=== PATIENT | male | born 1960 | race Two or more races ===

== ENCOUNTER 2017-04-24 22:28 | Emergency (ER) | payer MEDICAID ==
--- NOTE | 2017-04-24 23:07 | ED Physician Chart ---
ED Chief Complaint/HPI - Patient Information Date Seen:: 04/24/17 Time Seen:: 22:40 Chief Complaint:: nausea History of Present Illness:: THIS IS A 56 YO DIABETIC AND HYPERTENSIVE MALE WHO IS A FREQUENT FLYER HOMELESS PATIENT WITH A COMPLAINT OF NAUSEA. HE DENIES FEVER, COUGH, SORE THROAT, CHEST PAIN AND ABDOMINAL PAIN. HE DENIES HAVING VOMITING AND DIARRHEA. Allergies:: Allergies Allergy/AdvReac Type Severity Reaction Status Date / Time No Known Allergies Allergy Verified 04/24/17 22:54 Vitals:: Vital Signs - 8 hr 04/24/17 22:30 Temp 98.0 F HR 95 RR 18 BP 165/90 O2 Sat % 98 Historian:: Patient Review:: Nurse's Note Reviewed, Old Chart Reviewed ED Review of Systems - Review of Systems General/Constitutional: No fever, No chills, No weight loss, No weakness, No diaphoresis, No edema, No loss of appetite Skin: No skin lesions, No rash, No bruising Head: No headache, No light-headedness Eyes: No loss of vision, No pain, No diplopia ENT: No earache, No nasal drainage, No sore throat, No tinnitus Neck: No neck pain, No swelling, No thyromegaly, No stiffness, No mass noted Cardio Vascular: No chest pain, No palpitations, No PND, No orthopnea, No edema Pulmonary: No SOB, No cough, No sputum, No wheezing GI: Nausea, No vomiting, No diarrhea, No pain, No melena, No hematochezia, No constipation, No hematemesis G/U: No dysuria, No frequency, No hematuria Musculoskeletal: No bone or joint pain, No back pain, No muscle pain Endocrine: No polyuria, No polydipsia Psychiatric: No prior psych history, No depression, No anxiety, No suicidal ideation Hematopoietic: No bruising, No lymphadenopathy Allergic/Immuno: No urticaria, No angioedema Neurological: No syncope, No focal symptoms, No weakness, No paresthesia, No headache, No seizure, No dizziness, No confusion, No vertigo ED Past Medical History - Past Medical History Obtainable: Yes Past Medical History: HTN, DM, Other (ETOH ABUSE) Social History: Non Smoker, Alcohol, No Drug Use Surgical History: None Psychiatricy History: Depression Medication: Reviewed Family Medical History - Family Member Mother History Unknown: Yes Living Status: ED Physical Exam - Physical Examination General/Constitutional: Awake, Well-developed, well-nourished, Alert, No distress, GCS 15, Non-toxic appearing, Ambulatory Other Gen/Cons comments:: HE IS SMELLY AND UNKEPT AND SOMEWHAT DISORIENTED TIMES THREE. Head: Atraumatic Eyes: Lids, conjuctiva normal, PERRL, EOMI Skin: Nl inspection, No rash, No skin lesions, No ecchymosis, Well hydrated, No lymphadenopathy ENMT: External ears, nose nl, Nasal exam nl, Lips, teeth, gums nl Neck: Nontender, Full ROM w/o pain, No JVD, No nuchal rigidity, No bruit, No mass, No stridor Respiratory: Nl effort/Exclusion, Clear to Auscultation, No Wheeze/Rhonchi/Rales Cardio Vascular: RRR, No murmur, gallop, rubs, NL S1 S2 GI: No tenderness/rebounding/guarding, No organomegaly, No hernia, Normal BS's, Nondistended, No mass/bruits, No McBurney tenderness : No CVA tenderness Extremities: No tenderness or effusion, Full ROM, normal strength in all extremities, No edema, Normal digits & nails Neuro/Psych: Alert/oriented, DTR's symmetric, Normal sensory exam, Normal motor strength, Judgement/insight normal, Mood normal, Normal gait, No focal deficits Misc: Normal back, No paraspinal tenderness ED Septic Shock - . Is Septic Shock (SBP<90, OR Lactate>4 mmol\L) present?: No - <6hrs of presentation: Vital Signs: Vital Signs - 8 hr 04/24/17 22:30 Temp 98.0 F HR 95 RR 18 BP 165/90 O2 Sat % 98
[2017-04-24 23:37] LABS: % BASOPHILS 0.1 % (0.0-2.0); % EOSINOPHILS 1.1 % (0.0-5.0); % LYMPHOCYTES 16.4 % (20.0-50.0); % MONOCYTES 4.9 % (2.0-10.0); % NEUTROPHILS 77.5 % (40.0-80.0); EOSINOPHILE ABSOLUTE 0.1 Th/cmm (0.1-0.4); HEMATOCRIT 47.2 % (41.0-60); HEMOGLOBIN 15.9 gm/dL (12-16); LYMPHOCYTE ABSOLUTE 1.7 Th/cmm (1.5-3.0); MEAN CELL VOLUME 90.4 fl (80-99); MEAN CORPUSCULAR HEMOGLOBIN 30.5 pg (26.0-30.0); MEAN CORPUSCULAR HGB CONC 33.7 pg (28.0-36.0); MEAN PLATELET VOLUME 9.2 fl; MONOCYTE ABSOLUTE 0.5 Th/cmm (0.3-1.0); NEUTROPHILE ABSOLUTE 7.8 Th/cmm (1.8-8.0); PLATELET COUNT 236 Th/cmm (150-400); RED BLOOD COUNT 5.22 Mil/cmm (4.30-5.70); RED CELL DISTRIBUTION WIDTH 12.2 % (11.5-20.0); WHITE BLOOD COUNT 10.1 Th/cmm (4.8-10.8)
[2017-04-24 23:49] LABS: INR 0.91 (0.5-1.4); PROTHROMBIN TIME (TEST) 9.5 SECONDS (9.5-11.5)
[2017-04-24 23:57] LABS: ALB/GLOB RATIO 1.3 (1.0-1.8); ALBUMIN 3.7 gm/dL (4.2-5.5); ALKALINE PHOSPHATASE 141 U/L (34-104); BILIRUBIN,TOTAL 0.3 mg/dL (0.3-1.0); BUN - UREA NITROGEN 14 mg/dL (7-25); CALCIUM SERUM 9.2 mg/dL (8.6-10.3); CARBON DIOXIDE 24.2 mEq/L (21.0-31.0); CHLORIDE 101 mEq/L (98-107); CREATININE - SERUM 0.7 mg/dL (0.7-1.3); GFR AFRICAN-AMERICAN > 60.0 ml/min (>90); GFR NON AFRICAN-AMERICAN > 60.0 ml/min; GLUCOSE 368 mg/dL (70-105); POTASSIUM SERUM 3.2 mEq/L (3.5-5.1); SGOT 9 U/L (13-39); SGPT/ALT 11 U/L (7-52); SODIUM SERUM 133 mEq/L (136-145); TOTAL PROTEIN,SERUM 6.6 gm/dL (6.0-8.3)
[2017-04-25] MEDS ORDERED: Potassium Chloride Elixir 20 mEq /15 mL UDC PO ONE (01:42)
[2017-04-25] MEDS ORDERED: Potassium Chloride Elixir 20 mEq /15 mL UDC ONE (06:39)
[2017-04-25 20:24] LABS: A1C % 10.1 % (4.0-6.0)
== END 2017-04-25 06:50 | disposition home or self-care (01) ==
LOC: ER 22:28
DX: E11.65 Type 2 diabetes mellitus with hyperglycemia (principal); R11.0 Nausea; I10 Essential (primary) hypertension
CPT/HCPCS: 36415-UA; 80053-TC; 80320-TC; 83036-90; 84443-TC; 84484-TC; 85025-TC; 85610-TC; Z7502

== ENCOUNTER 2017-07-17 18:21 | Emergency (ER) | payer MEDICAID ==
--- NOTE | 2017-07-17 18:37 | ED Physician Chart ---
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 HE DENIES FEVER, COUGH, SORE THROAT, CHEST PAIN AND NOW HE CLAIMS THAT HE HAS ABDOMINAL PAIN. HE DENIES HAVING VOMITING AND DIARRHEA. HE ADMITS TO DRINKING ALCOHOL. Allergies:: Allergies Allergy/AdvReac Type Severity Reaction Status Date / Time No Known Allergies Allergy Verified 07/17/17 18:26 Vitals:: Vital Signs - 8 hr 07/17/17 18:28 Temp 98.6 F HR 96 RR 17 BP 162/97 O2 Sat % 98 Historian:: Patient, EMS Review:: Nurse's Note Reviewed, Old Chart Reviewed ED Review of Systems - Review of Systems General/Constitutional: No fever, No chills, No weight loss, No weakness, No diaphoresis, No edema, No loss of appetite Skin: No skin lesions, No rash, No bruising Head: No headache, No light-headedness Eyes: No loss of vision, No pain, No diplopia ENT: No earache, No nasal drainage, No sore throat, No tinnitus Neck: No neck pain, No swelling, No thyromegaly, No stiffness, No mass noted Cardio Vascular: No chest pain, No palpitations, No PND, No orthopnea, No edema Pulmonary: No SOB, No cough, No sputum, No wheezing GI: No nausea, No vomiting, No diarrhea, Pain, No melena, No hematochezia, No constipation, No hematemesis G/U: No dysuria, No frequency, No hematuria Musculoskeletal: No bone or joint pain, No back pain, No muscle pain Endocrine: No polyuria, No polydipsia Psychiatric: No prior psych history, No depression, No anxiety, No suicidal ideation Hematopoietic: No bruising, No lymphadenopathy Allergic/Immuno: No urticaria, No angioedema Neurological: No syncope, No focal symptoms, No weakness, No paresthesia, No headache, No seizure, No dizziness, No confusion, No vertigo ED Past Medical History - Past Medical History Obtainable: Yes Past Medical History: HTN, DM, PUD/GERD Family History: None Social History: Smoker, Alcohol, No Drug Use, Homeless Surgical History: None Psychiatricy History: Depression Medication: Reviewed Family Medical History - Family Member Mother History Unknown: Yes Living Status: ED Physical Exam - Physical Examination General/Constitutional: Awake, Well-developed, well-nourished, Alert, No distress, GCS 15, Non-toxic appearing, Ambulatory Other Gen/Cons comments:: SMELLS AND IS UNKEPT Head: Atraumatic Eyes: Lids, conjuctiva normal, PERRL, EOMI Skin: Nl inspection, No rash, No skin lesions, No ecchymosis, Well hydrated, No lymphadenopathy ENMT: External ears, nose nl, Nasal exam nl, Lips, teeth, gums nl Neck: Nontender, Full ROM w/o pain, No JVD, No nuchal rigidity, No bruit, No mass, No stridor Respiratory: Nl effort/Exclusion, Clear to Auscultation, No Wheeze/Rhonchi/Rales Cardio Vascular: RRR, No murmur, gallop, rubs, NL S1 S2 GI: No tenderness/rebounding/guarding, No organomegaly, No hernia, Normal BS's, Nondistended, No mass/bruits, No McBurney tenderness : No CVA tenderness Extremities: No tenderness or effusion, Full ROM, normal strength in all extremities, No edema, Normal digits & nails Neuro/Psych: Alert/oriented, DTR's symmetric, Normal sensory exam, Normal motor strength, Judgement/insight normal, Mood normal, Normal gait, No focal deficits Misc: Normal back, No paraspinal tenderness ED Labs/Radiology/EKG Results - Lab Results Results: Abnormal Lab Results 07/17/17 07/17/17 07/17/17 18:50 18:50 18:50 WBC 7.2 RBC 5.01 Hgb 15.2 Hct 44.7 MCV 89.1 MCH 30.3 H MCHC Differential 34.0 RDW 12.1 Plt Count 226 MPV 8.9 Neutrophils % 67.7 Lymphocytes % 24.0 Monocytes % 6.0 Eosinophils % 2.3 Basophils % 0.0 PT 9.4 L INR 0.90 PTT (Actin FS) 27.5 Sodium 135 L Potassium 3.4 L Chloride 103 Carbon Dioxide 25.5 Anion Gap 9.9 BUN 10 Creatinine 0.6 L Est GFR ( Amer) > 60.0 Est GFR (Non-Af Amer) > 60.0 BUN/Creatinine Ratio 16.7 Glucose 196 H Calcium 8.6 Total Bilirubin 0.3 AST 14 ALT 15 Alkaline Phosphatase 114 H Troponin I Total Protein 6.2 Albumin 3.6 L Globulin 2.6 Albumin/Globulin Ratio 1.4 Ethyl Alcohol 07/17/17 07/17/17 18:50 18:50 WBC RBC Hgb Hct MCV MCH MCHC Differential RDW Plt Count MPV Neutrophils % Lymphocytes % Monocytes % Eosinophils % Basophils % PT INR PTT (Actin FS) Sodium Potassium Chloride Carbon Dioxide Anion Gap BUN Creatinine Est GFR ( Amer) Est GFR (Non-Af Amer) BUN/Creatinine Ratio Glucose Calcium Total Bilirubin AST ALT Alkaline Phosphatase Troponin I 0.02 Total Protein Albumin Globulin Albumin/Globulin Ratio Ethyl Alcohol < 10 - Radiology Results Results: CHEST X-RAY = CARDIOMEGALY - EKG Interpretations EKG Time:: 18:39 Rate & Rhythm: RATE = 104 Henry: LEFT Comments:: NO ECTOPY SEEN ED Septic Shock - . Is Septic Shock (SBP<90, OR Lactate>4 mmol\L) present?: No - <6hrs of presentation: Vital Signs: Vital Signs - 8 hr 07/17/17 18:28 Temp 98.6 F HR 96 RR 17 BP 162/97 O2 Sat % 98 ED Reassessment (Disposition) - Reassessment Reassessment:: ABDOMINAL PAIN Reassessment Condition:: Unchanged - Diagnosis Diagnosis:: ABDOMINAL PAIN - Aftercare/Follow up Instructions Aftercare/Follow-Up Instructions:: Counseled pt regarding lab results/diagnosis & need follow up, Refer to Discharge Instructions, Counseled pt & family regarding lab results/diagnosis & need follow up - Patient Disposition Discharge/Transfer:: Home Condition at Disposition:: Improved ED Discharge Plan - Patient Disposition Admit/Discharge/Transfer: PT DISCHARGED HOME Condition at Disposition: Improved Instructions: Abdominal Pain, [id number] Additional Instructions: FOLLOW UP WITH YOUR PRIMARY MEDICAL DOCTOR GERARDO
[2017-07-17 19:00] LABS: % EOSINOPHILS 2.3 % (0.0-5.0); % NEUTROPHILS 67.7 % (40.0-80.0); EOSINOPHILE ABSOLUTE 0.2 Th/cmm (0.1-0.4); HEMATOCRIT 44.7 % (41.0-60); HEMOGLOBIN 15.2 gm/dL (12-16); LYMPHOCYTE ABSOLUTE 1.7 Th/cmm (1.5-3.0); MEAN CELL VOLUME 89.1 fl (80-99); MEAN CORPUSCULAR HEMOGLOBIN 30.3 pg (26.0-30.0); MEAN PLATELET VOLUME 8.9 fl; MONOCYTE ABSOLUTE 0.4 Th/cmm (0.3-1.0); NEUTROPHILE ABSOLUTE 4.9 Th/cmm (1.8-8.0); PLATELET COUNT 226 Th/cmm (150-400); RED BLOOD COUNT 5.01 Mil/cmm (4.30-5.70); RED CELL DISTRIBUTION WIDTH 12.1 % (11.5-20.0); WHITE BLOOD COUNT 7.2 Th/cmm (4.8-10.8)
[2017-07-17 19:14] LABS: INR 0.9 (0.5-1.4); PROTHROMBIN TIME (TEST) 9.4 SECONDS (9.5-11.5)
[2017-07-17 19:18] LABS: ALB/GLOB RATIO 1.4 (1.0-1.8); ALBUMIN 3.6 gm/dL (4.2-5.5); ALKALINE PHOSPHATASE 114 U/L (34-104); ANION GAP 9.9 (7.0-16.0); BILIRUBIN,TOTAL 0.3 mg/dL (0.3-1.0); BUN - UREA NITROGEN 10 mg/dL (7-25); CALCIUM SERUM 8.6 mg/dL (8.6-10.3); CARBON DIOXIDE 25.5 mEq/L (21.0-31.0); CHLORIDE 103 mEq/L (98-107); CREATININE - SERUM 0.6 mg/dL (0.7-1.3); GFR AFRICAN-AMERICAN > 60.0 ml/min (>90); GFR NON AFRICAN-AMERICAN > 60.0 ml/min; GLUCOSE 196 mg/dL (70-105); POTASSIUM SERUM 3.4 mEq/L (3.5-5.1); SGOT 14 U/L (13-39); SGPT/ALT 15 U/L (7-52); SODIUM SERUM 135 mEq/L (136-145); TOTAL PROTEIN,SERUM 6.2 gm/dL (6.0-8.3)
[2017-07-17 21:01] LABS: URINE MICROSCOPIC INDICATED? YES; URINE SOURCE CLEAN C
[2017-07-17 21:05] LABS: URINE BILIRUBIN NEGATIVE (NEGATIVE); URINE BLOOD SMALL (NEGATIVE); URINE GLUCOSE (UA) 250 mg/dL (NEGATIVE); URINE KETONE NEGATIVE (NEGATIVE); URINE LEUKOCYTE ESTERASE NEGATIVE (NEGATIVE); URINE NITRATE NEGATIVE (NEGATIVE); URINE PROTEIN 30 mg/dL (NEGATIVE)
[2017-07-17 21:13] LABS: URINE CLARITY CLEAR (CLEAR); URINE COLOR YELLOW
[2017-07-17 21:18] LABS: URINE EPITHELIAL CELLS FEW /lpf (FEW)
[2017-07-17 21:19] LABS: URINE BACTERIA FEW /hpf (NONE SEEN)
--- NOTE | 2017-07-18 10:31 | Diagnostic Imaging Report ---
Chest x-ray portable HISTORY: Cough. Findings: Portable upright examination of the chest at 1912 hours reviewed compared to prior study 01/26/2015 demonstrates cardiomegaly. There is evidence for left lower lobe pneumonia and effusion. Follow-up initially recommended. Bony thorax intact. Mediastinal structures midline. IMPRESSION: Cardiomegaly Questionable left basilar infiltrate and effusion follow-up examination is recommended.
[2017-07-18 16:46] LABS: A1C % 8.9 % (4.0-6.0)
== END 2017-07-17 20:30 | disposition home or self-care (01) ==
LOC: ER 18:21
DX: R10.9 Unspecified abdominal pain (principal); I10 Essential (primary) hypertension; E11.9 Type 2 diabetes mellitus without complications; K21.9 Gastro-esophageal reflux disease without esophagitis; F17.200 Nicotine dependence, unspecified, uncomplicated; Z59.0 Homelessness
CPT/HCPCS: 36415-UA; 71045-TC; 80053-TC; 80320-TC; 81001-TC; 83036-90; 84484-TC; 85025-TC; 85610-TC; 85730-TC; 93005

== ENCOUNTER 2017-07-18 03:40 | Emergency (ER) | payer MEDICAID ==
--- NOTE | 2017-07-18 04:43 | ED Physician Chart ---
ED Chief Complaint/HPI - Patient Information Date Seen:: 07/18/17 Time Seen:: 03:55 Chief Complaint:: weakness History of Present Illness:: THIS IS A 56 YO HOMELESS MALE WHO WAS HERE EARLIER AND TREATED. HE WANTS TO BE SEEN AGAIN FOR A CHECK OF HIS BP. HE DENIES CHEST PAIN, NAUSEA AND VOMITING. Allergies:: Allergies Allergy/AdvReac Type Severity Reaction Status Date / Time No Known Allergies Allergy Verified 07/17/17 18:26 Vitals:: Vital Signs - 8 hr 07/18/17 03:49 Temp 98.1 F HR 106 RR 19 BP 140/96 O2 Sat % 96 Historian:: Patient Review:: Nurse's Note Reviewed ED Review of Systems - Review of Systems General/Constitutional: No fever, No chills, No weight loss, Weakness, No diaphoresis, No edema, No loss of appetite Skin: No skin lesions, No rash, No bruising Head: No headache, No light-headedness Eyes: No loss of vision, No pain, No diplopia ENT: No earache, No nasal drainage, No sore throat, No tinnitus Neck: No neck pain, No swelling, No thyromegaly, No stiffness, No mass noted Cardio Vascular: No chest pain, No palpitations, No PND, No orthopnea, No edema Pulmonary: No SOB, No cough, No sputum, No wheezing GI: No nausea, No vomiting, No diarrhea, No pain, No melena, No hematochezia, No constipation, No hematemesis G/U: No dysuria, No frequency, No hematuria Musculoskeletal: No bone or joint pain, No back pain, No muscle pain Endocrine: No polyuria, No polydipsia Psychiatric: No prior psych history, No depression, No anxiety, No suicidal ideation Hematopoietic: No bruising, No lymphadenopathy Allergic/Immuno: No urticaria, No angioedema Neurological: No syncope, No focal symptoms, No weakness, No paresthesia, No headache, No seizure, No dizziness, No confusion, No vertigo ED Past Medical History - Past Medical History Obtainable: Yes Past Medical History: HTN Family History: None Social History: Smoker, Alcohol, No Drug Use, Homeless Surgical History: None Psychiatricy History: None Medication: Reviewed Family Medical History - Family Member Mother History Unknown: Yes Living Status: ED Physical Exam - Physical Examination General/Constitutional: Awake, Well-developed, well-nourished, Alert, No distress, GCS 15, Non-toxic appearing, Ambulatory Head: Atraumatic Eyes: Lids, conjuctiva normal, PERRL, EOMI Skin: Nl inspection, No rash, No skin lesions, No ecchymosis, Well hydrated, No lymphadenopathy ENMT: External ears, nose nl, Nasal exam nl, Lips, teeth, gums nl Neck: Nontender, Full ROM w/o pain, No JVD, No nuchal rigidity, No bruit, No mass, No stridor Respiratory: Nl effort/Exclusion, Clear to Auscultation, No Wheeze/Rhonchi/Rales Cardio Vascular: RRR, No murmur, gallop, rubs, NL S1 S2 GI: No tenderness/rebounding/guarding, No organomegaly, No hernia, Normal BS's, Nondistended, No mass/bruits, No McBurney tenderness : No CVA tenderness Extremities: No tenderness or effusion, Full ROM, normal strength in all extremities, No edema, Normal digits & nails Neuro/Psych: Alert/oriented, DTR's symmetric, Normal sensory exam, Normal motor strength, Judgement/insight normal, Mood normal, Normal gait, No focal deficits Misc: Normal back, No paraspinal tenderness ED Labs/Radiology/EKG Results - Lab Results Results: Abnormal Lab Results 07/18/17 07/18/17 04:45 04:45 Sodium 135 L Potassium 3.3 L Chloride 102 Carbon Dioxide 24.9 Anion Gap 11.4 BUN 9 Creatinine 0.7 Est GFR ( Amer) > 60.0 Est GFR (Non-Af Amer) > 60.0 BUN/Creatinine Ratio 12.9 Glucose 231 H Calcium 8.8 Total Bilirubin 0.3 AST 12 L ALT 15 Alkaline Phosphatase 112 H Troponin I 0.01 Total Protein 6.5 Albumin 3.8 L Globulin 2.7 Albumin/Globulin Ratio 1.4 ED Assessment - Assessment General Assessment: HYPERTENSION ED Septic Shock - . Is Septic Shock (SBP<90, OR Lactate>4 mmol\L) present?: No - <6hrs of presentation: Vital Signs: Vital Signs - 8 hr 07/18/17 03:49 Temp 98.1 F HR 106 RR 19 BP 140/96 O2 Sat % 96 ED Reassessment (Disposition) - Reassessment Reassessment Condition:: Improved - Diagnosis Diagnosis:: HYPERTENSION - Aftercare/Follow up Instructions Aftercare/Follow-Up Instructions:: Counseled pt regarding lab results/diagnosis & need follow up, Refer to Discharge Instructions, Counseled pt & family regarding lab results/diagnosis & need follow up - Patient Disposition Discharge/Transfer:: Home Condition at Disposition:: Improved ED Discharge Plan - Patient Disposition Admit/Discharge/Transfer: PT DISCHARGED HOME Condition at Disposition: Improved Instructions: Hypertension Additional Instructions: follow up with your primary medical doctor ryanne
[2017-07-18 05:16] LABS: ALB/GLOB RATIO 1.4 (1.0-1.8); ALBUMIN 3.8 gm/dL (4.2-5.5); ALKALINE PHOSPHATASE 112 U/L (34-104); ANION GAP 11.4 (7.0-16.0); BILIRUBIN,TOTAL 0.3 mg/dL (0.3-1.0); BUN - UREA NITROGEN 9 mg/dL (7-25); CALCIUM SERUM 8.8 mg/dL (8.6-10.3); CARBON DIOXIDE 24.9 mEq/L (21.0-31.0); CHLORIDE 102 mEq/L (98-107); CREATININE - SERUM 0.7 mg/dL (0.7-1.3); GFR AFRICAN-AMERICAN > 60.0 ml/min (>90); GFR NON AFRICAN-AMERICAN > 60.0 ml/min; GLUCOSE 231 mg/dL (70-105); POTASSIUM SERUM 3.3 mEq/L (3.5-5.1); SGOT 12 U/L (13-39); SGPT/ALT 15 U/L (7-52); SODIUM SERUM 135 mEq/L (136-145); TOTAL PROTEIN,SERUM 6.5 gm/dL (6.0-8.3)
== END 2017-07-18 06:24 | disposition home or self-care (01) ==
LOC: ER 03:40
DX: I10 Essential (primary) hypertension (principal); F17.200 Nicotine dependence, unspecified, uncomplicated; Z59.0 Homelessness
CPT/HCPCS: 36415-UA; 80053-TC; 84484-TC; Z7502

== ENCOUNTER 2017-07-27 03:14 | Emergency (ER) | payer MEDICAID ==
[2017-07-27] MEDS ORDERED: Pantoprazole 40 mg EC Tab PO STA (03:50)
--- NOTE | 2017-07-27 03:56 | ED Physician Chart ---
ED Chief Complaint/HPI - Patient Information Date Seen:: 07/27/17 Time Seen:: 03:55 Chief Complaint:: Generalized weakness and abdominal pain History of Present Illness:: 56 yo homeless male called [place] [employer] complaining generalized weakness and nausea and abdominal pain a few hours ago. Patient was brought to ER for evaluation. Allergies:: Allergies Allergy/AdvReac Type Severity Reaction Status Date / Time No Known Allergies Allergy Verified 07/17/17 18:26 Vitals:: Vital Signs - 8 hr 07/27/17 03:21 Temp 98 F HR 103 RR 18 BP 153/94 O2 Sat % 95 ED Review of Systems - Review of Systems General/Constitutional: No fever, No chills, Weakness Skin: No bruising Head: No headache Eyes: No pain ENT: No nasal drainage Neck: No neck pain Cardio Vascular: No chest pain Pulmonary: No SOB GI: Nausea, No vomiting, Pain Musculoskeletal: No bone or joint pain Neurological: No focal symptoms ED Past Medical History - Past Medical History Past Medical History: HTN, DM Social History: Non Smoker, Alcohol, No Drug Use Surgical History: other (Elbow surgery) Family Medical History - Family Member Mother History Unknown: Yes Living Status: ED Physical Exam - Physical Examination General/Constitutional: Awake Head: Atraumatic Eyes: PERRL Skin: No ecchymosis ENMT: Nasal exam nl Neck: No nuchal rigidity Respiratory: No Wheeze/Rhonchi/Rales Cardio Vascular: RRR, No murmur, gallop, rubs, NL S1 S2 GI: Nondistended Extremities: normal strength in all extremities Neuro/Psych: No focal deficits ED Labs/Radiology/EKG Results - Lab Results Results: Laboratory Tests 07/27/17 03:20 POC Glucose 205 H Laboratory Last Values WBC 9.0 Th/cmm (4.8-10.8) 07/27/17 04:00 RBC 5.50 Mil/cmm (4.30-5.70) 07/27/17 04:00 Hgb 16.6 gm/dL (12-16) 07/27/17 04:00 Hct 49.5 % (41.0-60) 07/27/17 04:00 MCV 90.0 fl (80-99) 07/27/17 04:00 MCH 30.2 pg (26.0-30.0) H 07/27/17 04:00 MCHC Differential 33.5 pg (28.0-36.0) 07/27/17 04:00 RDW 12.3 % (11.5-20.0) 07/27/17 04:00 Plt Count 202 Th/cmm (150-400) 07/27/17 04:00 MPV 8.6 fl 07/27/17 04:00 Neutrophils % 69.7 % (40.0-80.0) 07/27/17 04:00 Lymphocytes % 21.4 % (20.0-50.0) 07/27/17 04:00 Monocytes % 5.3 % (2.0-10.0) 07/27/17 04:00 Eosinophils % 1.7 % (0.0-5.0) 07/27/17 04:00 Basophils % 1.9 % (0.0-2.0) 07/27/17 04:00 PT 9.8 SECONDS (9.5-11.5) 07/27/17 04:00 INR 0.94 (0.5-1.4) 07/27/17 04:00 PTT (Actin FS) 27.0 SECONDS (26.0-38.0) 07/27/17 04:00 Sodium 135 mEq/L (136-145) L 07/27/17 04:00 Potassium 3.6 mEq/L (3.5-5.1) 07/27/17 04:00 Chloride 101 mEq/L (98-107) 07/27/17 04:00 Carbon Dioxide 28.3 mEq/L (21.0-31.0) 07/27/17 04:00 Anion Gap 9.3 (7.0-16.0) 07/27/17 04:00 BUN 12 mg/dL (7-25) 07/27/17 04:00 Creatinine 0.6 mg/dL (0.7-1.3) L 07/27/17 04:00 Est GFR ( Amer) > 60.0 ml/min (>90) 07/27/17 04:00 Est GFR (Non-Af Amer) > 60.0 ml/min 07/27/17 04:00 BUN/Creatinine Ratio 20.0 07/27/17 04:00 Glucose 220 mg/dL (70-105) H 07/27/17 04:00 POC Glucose 205 MG/DL (70 - 105) H 07/27/17 03:20 Calcium 9.0 mg/dL (8.6-10.3) 07/27/17 04:00 Total Bilirubin 0.3 mg/dL (0.3-1.0) 07/27/17 04:00 AST 10 U/L (13-39) L 07/27/17 04:00 ALT 11 U/L (7-52) 07/27/17 04:00 Alkaline Phosphatase 127 U/L (34-104) H 07/27/17 04:00 Total Protein 6.6 gm/dL (6.0-8.3) 07/27/17 04:00 Albumin 3.7 gm/dL (4.2-5.5) L 07/27/17 04:00 Globulin 2.9 gm/dL 07/27/17 04:00 Albumin/Globulin Ratio 1.3 (1.0-1.8) 07/27/17 04:00 Amylase 25 U/L (29-103) L 07/27/17 04:00 Lipase 13 U/L (11-82) 07/27/17 04:00 Ethyl Alcohol < 10 mg/dL (0-10) 07/27/17 04:00 - EKG Interpretations EKG Time:: 04:03 Rate & Rhythm: 104, sinus tachycardia Tyler: left atrial enlargement Intervals: polonged QT interval ED Assessment - Assessment General Assessment: Gastroenteritis DM II Hypertension Assessment/Comments:: CBC, CMP, lipase, ETOH level Pantoprazole 40mg po Zofran 40mg po ED Septic Shock - . Is Septic Shock (SBP<90, OR Lactate>4 mmol\L) present?: No - <6hrs of presentation: Vital Signs: Vital Signs - 8 hr 07/27/17 03:21 Temp 98 F HR 103 RR 18 BP 153/94 O2 Sat % 95 ED Reassessment (Disposition) - Reassessment Reassessment Condition:: Improved - Patient Disposition Discharge/Transfer:: Home ED Discharge Plan - Patient Disposition Admit/Discharge/Transfer: PT DISCHARGED HOME Condition at Disposition: Stable Instructions: Nausea, Adult Additional Instructions: FOLLOW UP WITH YOUR REGULAR DOCTOR IN 1-2 DAYS OR AT [facility]. RETURN TO ER FOR ANY WORSENING SYMPTOMS. Accepting Physician: NO,PCP PER PATIENT [Other] not on staff,PCP is [Primary Care Provider] -
[2017-07-27] MEDS ORDERED: Pantoprazole 40 mg EC Tab PO ONE (04:08)
[2017-07-27 04:16] LABS: % BASOPHILS 1.9 % (0.0-2.0); % EOSINOPHILS 1.7 % (0.0-5.0); % LYMPHOCYTES 21.4 % (20.0-50.0); % MONOCYTES 5.3 % (2.0-10.0); % NEUTROPHILS 69.7 % (40.0-80.0); BASOPHILE ABSOLUTE 0.2 Th/cumm (0-0.2); EOSINOPHILE ABSOLUTE 0.2 Th/cmm (0.1-0.4); HEMATOCRIT 49.5 % (41.0-60); HEMOGLOBIN 16.6 gm/dL (12-16); LYMPHOCYTE ABSOLUTE 1.9 Th/cmm (1.5-3.0); MEAN CORPUSCULAR HEMOGLOBIN 30.2 pg (26.0-30.0); MEAN CORPUSCULAR HGB CONC 33.5 pg (28.0-36.0); MEAN PLATELET VOLUME 8.6 fl; MONOCYTE ABSOLUTE 0.5 Th/cmm (0.3-1.0); NEUTROPHILE ABSOLUTE 6.2 Th/cmm (1.8-8.0); PLATELET COUNT 202 Th/cmm (150-400); RED CELL DISTRIBUTION WIDTH 12.3 % (11.5-20.0)
[2017-07-27 04:26] LABS: INR 0.94 (0.5-1.4); PROTHROMBIN TIME (TEST) 9.8 SECONDS (9.5-11.5)
[2017-07-27 04:29] LABS: ALB/GLOB RATIO 1.3 (1.0-1.8); ALBUMIN 3.7 gm/dL (4.2-5.5); ALKALINE PHOSPHATASE 127 U/L (34-104); AMYLASE SERUM 25 U/L (29-103); ANION GAP 9.3 (7.0-16.0); BILIRUBIN,TOTAL 0.3 mg/dL (0.3-1.0); BUN - UREA NITROGEN 12 mg/dL (7-25); CARBON DIOXIDE 28.3 mEq/L (21.0-31.0); CHLORIDE 101 mEq/L (98-107); CREATININE - SERUM 0.6 mg/dL (0.7-1.3); GFR AFRICAN-AMERICAN > 60.0 ml/min (>90); GFR NON AFRICAN-AMERICAN > 60.0 ml/min; GLUCOSE 220 mg/dL (70-105); LIPASE 13 U/L (11-82); POTASSIUM SERUM 3.6 mEq/L (3.5-5.1); SGOT 10 U/L (13-39); SGPT/ALT 11 U/L (7-52); SODIUM SERUM 135 mEq/L (136-145); TOTAL PROTEIN,SERUM 6.6 gm/dL (6.0-8.3)
== END 2017-07-27 06:25 | disposition home or self-care (01) ==
LOC: ER 03:14
DX: R53.1 Weakness (principal); R10.9 Unspecified abdominal pain; R11.0 Nausea; I10 Essential (primary) hypertension; E11.9 Type 2 diabetes mellitus without complications; Z59.0 Homelessness
CPT/HCPCS: 99285; 93005; 36415; 36416; 82948; 85025; 85610; 80320; 82150; 83690; 80053; Q0162; Z7610

== ENCOUNTER 2017-09-15 05:39 | Emergency (ER) | payer MEDICAID ==
--- NOTE | 2017-09-15 06:21 | ED Physician Chart ---
ED Chief Complaint/HPI - Patient Information Date Seen:: 09/15/17 Time Seen:: 06:20 Chief Complaint:: Generalized weakness History of Present Illness:: 57 yo homeless male walked to ER stating that he had weakness all over the body and pain in bilateral lower extremities due to "walking a lot". He fell into asleep during conversation and had to be waken up repeatedly. Allergies:: Allergies Allergy/AdvReac Type Severity Reaction Status Date / Time No Known Allergies Allergy Verified 09/15/17 06:02 Vitals:: Vital Signs - 8 hr 09/15/17 06:05 Temp 98.7 F HR 99 RR 18 BP 144/87 O2 Sat % 97 ED Review of Systems - Review of Systems General/Constitutional: No fever, Weakness Skin: Bruising Head: Light headed Eyes: No pain ENT: No nasal drainage Neck: No neck pain Cardio Vascular: No chest pain Pulmonary: No SOB GI: No nausea, No vomiting Musculoskeletal: Bone or joint pain Neurological: No focal symptoms ED Past Medical History - Past Medical History Past Medical History: HTN, DM Social History: Smoker, No Alcohol, No Drug Use Surgical History: other (Left arm surgery, neck surgery) Family Medical History - Family Member Mother History Unknown: Yes Living Status: ED Physical Exam - Physical Examination General/Constitutional: Awake Head: Atraumatic Eyes: PERRL Skin: No skin lesions ENMT: Nasal exam nl Neck: No nuchal rigidity Respiratory: No Wheeze/Rhonchi/Rales Cardio Vascular: RRR, No murmur, gallop, rubs, NL S1 S2 GI: No tenderness/rebounding/guarding Extremities: No tenderness or effusion Neuro/Psych: Mood normal ED Assessment - Assessment General Assessment: Generalized weakness possibly due to lack of sleep DM II Hypertension Assessment/Comments:: CBC, CMP, HbA1c level, ETOH level Dr. Stanley assumed care at 07:00 ED Septic Shock - . Is Septic Shock (SBP<90, OR Lactate>4 mmol\\L) present?: No - <6hrs of presentation: Vital Signs: Vital Signs - 8 hr 09/15/17 06:05 Temp 98.7 F HR 99 RR 18 BP 144/87 O2 Sat % 97
[2017-09-15 06:28] LABS: EOSINOPHILE ABSOLUTE 0.2 Th/cmm (0.1-0.4)
[2017-09-15 06:31] LABS: % EOSINOPHILS 2.2 % (0.0-5.0); % LYMPHOCYTES 19.8 % (20.0-50.0); % MONOCYTES 6.3 % (2.0-10.0); % NEUTROPHILS 71.7 % (40.0-80.0); HEMATOCRIT 43.8 % (41.0-60); HEMOGLOBIN 15.1 gm/dL (12-16); LYMPHOCYTE ABSOLUTE 1.9 Th/cmm (1.5-3.0); MEAN CELL VOLUME 90.3 fl (80-99); MEAN CORPUSCULAR HGB CONC 34.4 pg (28.0-36.0); MEAN PLATELET VOLUME 8.8 fl; MONOCYTE ABSOLUTE 0.6 Th/cmm (0.3-1.0); NEUTROPHILE ABSOLUTE 6.9 Th/cmm (1.8-8.0); PLATELET COUNT 249 Th/cmm (150-400); RED BLOOD COUNT 4.85 Mil/cmm (4.30-5.70); RED CELL DISTRIBUTION WIDTH 12.3 % (11.5-20.0); WHITE BLOOD COUNT 9.6 Th/cmm (4.8-10.8)
[2017-09-15 07:21] LABS: ALB/GLOB RATIO 1.2 (1.0-1.8); ALBUMIN 3.6 gm/dL (4.2-5.5); ALKALINE PHOSPHATASE 128 U/L (34-104); ANION GAP 9.4 (7.0-16.0); BILIRUBIN,TOTAL 0.3 mg/dL (0.3-1.0); BUN - UREA NITROGEN 11 mg/dL (7-25); CALCIUM SERUM 8.7 mg/dL (8.6-10.3); CARBON DIOXIDE 27.8 mEq/L (21.0-31.0); CHLORIDE 101 mEq/L (98-107); CREATININE - SERUM 0.7 mg/dL (0.7-1.3); GFR AFRICAN-AMERICAN > 60.0 ml/min (>90); GFR NON AFRICAN-AMERICAN > 60.0 ml/min; GLUCOSE 252 mg/dL (70-105); POTASSIUM SERUM 3.2 mEq/L (3.5-5.1); SGOT 10 U/L (13-39); SGPT/ALT 11 U/L (7-52); SODIUM SERUM 135 mEq/L (136-145); TOTAL PROTEIN,SERUM 6.6 gm/dL (6.0-8.3)
[2017-09-15] MEDS ORDERED: Potassium Chloride 20 mEq ER Tab PO ONE (07:48)
[2017-09-15] MEDS: Potassium Chloride 20 mEq ER Tab PO ONE (07:51)
[2017-09-16 20:42] LABS: A1C % 9.3 % (4.0-6.0)
== END 2017-09-15 08:00 | disposition home or self-care (01) ==
LOC: ER 05:39
DX: R53.1 Weakness (principal); I10 Essential (primary) hypertension; E11.9 Type 2 diabetes mellitus without complications; R42 Dizziness and giddiness; F17.200 Nicotine dependence, unspecified, uncomplicated; Z59.0 Homelessness
CPT/HCPCS: 36415-UA; 80053-TC; 80320-TC; 83036-90; 85025-TC; Z7502

== ENCOUNTER 2018-05-10 04:22 | Emergency (ER) | payer MEDICAID ==
--- NOTE | 2018-05-10 05:21 | ED Physician Chart ---
ED Chief Complaint/HPI - Patient Information Date Seen:: 05/10/18 Time Seen:: 05:16 Chief Complaint:: generalized weakness headache History of Present Illness:: 57 yr old male homeless with htn dm here for generlized weakness Allergies:: Allergies Allergy/AdvReac Type Severity Reaction Status Date / Time No Known Allergies Allergy Verified 05/10/18 04:34 Vitals:: Vital Signs - 8 hr 05/10/18 04:30 Temp 98.2 F HR 99 RR 16 BP 150/88 O2 Sat % 99 ED Review of Systems - Review of Systems General/Constitutional: No fever Head: Headache Eyes: No loss of vision ENT: No earache Neck: No neck pain Cardio Vascular: No chest pain Pulmonary: No SOB GI: No vomiting G/U: No dysuria Musculoskeletal: Bone or joint pain Endocrine: No polyuria Psychiatric: Depression Hematopoietic: No bruising Allergic/Immuno: No urticaria Neurological: Weakness ED Past Medical History - Past Medical History Obtainable: No Family Medical History - Family Member Mother History Unknown: Yes Living Status: ED Physical Exam - Physical Examination General/Constitutional: Well-developed, well-nourished Head: Atraumatic Eyes: Lids, conjuctiva normal Skin: Nl inspection ENMT: External ears, nose nl Neck: Full ROM w/o pain Respiratory: Nl effort/Exclusion Cardio Vascular: RRR GI: No tenderness/rebounding/guarding Extremities: Full ROM Neuro/Psych: Alert/oriented ED Assessment - Assessment General Assessment: generalized weakness ED Septic Shock - . Is Septic Shock (SBP<90, OR Lactate>4 mmol\L) present?: No - <6hrs of presentation: Vital Signs: Vital Signs - 8 hr 05/10/18 04:30 Temp 98.2 F HR 99 RR 16 BP 150/88 O2 Sat % 99 ED Reassessment (Disposition) - Reassessment Reassessment:: generalized weakness - Diagnosis Diagnosis:: generalized weakness - Patient Disposition Discharge/Transfer:: Home Condition at Disposition:: Stable
[2018-05-10 05:46] LABS: % BASOPHILS 0.6 % (0.0-2.0); % EOSINOPHILS 1.8 % (0.0-5.0); % LYMPHOCYTES 21.4 % (20.0-50.0); % MONOCYTES 6.6 % (2.0-10.0); % NEUTROPHILS 69.6 % (40.0-80.0); BASOPHILE ABSOLUTE 0.1 Th/cumm (0-0.2); EOSINOPHILE ABSOLUTE 0.2 Th/cmm (0.1-0.4); HEMATOCRIT 49.1 % (41.0-60); HEMOGLOBIN 15.9 gm/dL (12-16); LYMPHOCYTE ABSOLUTE 1.9 Th/cmm (1.5-3.0); MEAN CELL VOLUME 88.4 fl (80-99); MEAN CORPUSCULAR HEMOGLOBIN 28.7 pg (26.0-30.0); MEAN CORPUSCULAR HGB CONC 32.4 pg (28.0-36.0); MEAN PLATELET VOLUME 8.9 fl; MONOCYTE ABSOLUTE 0.6 Th/cmm (0.3-1.0); NEUTROPHILE ABSOLUTE 5.9 Th/cmm (1.8-8.0); PLATELET COUNT 222 Th/cmm (150-400); RED BLOOD COUNT 5.55 Mil/cmm (4.30-5.70); RED CELL DISTRIBUTION WIDTH 12.8 % (11.5-20.0); WHITE BLOOD COUNT 8.7 Th/cmm (4.8-10.8)
[2018-05-10 06:05] LABS: ANION GAP 11.7 (7.0-16.0); BUN - UREA NITROGEN 13 mg/dL (7-25); CALCIUM SERUM 9.1 mg/dL (8.6-10.3); CHLORIDE 99 mEq/L (98-107); CREATININE - SERUM 0.9 mg/dL (0.7-1.3); GFR AFRICAN-AMERICAN > 60.0 ml/min (>90); GFR NON AFRICAN-AMERICAN > 60.0 ml/min; GLUCOSE 265 mg/dL (70-105); POTASSIUM SERUM 3.7 mEq/L (3.5-5.1); SODIUM SERUM 134 mEq/L (136-145)
== END 2018-05-10 06:35 | disposition home or self-care (01) ==
LOC: ER 04:22
DX: R53.1 Weakness (principal); Z59.0 Homelessness
CPT/HCPCS: 36415-UA; 80048-TC; 83036-90; 85025-TC; Z7502

== ENCOUNTER 2018-08-09 03:14 | Emergency (ER) | payer MEDICAID ==
--- NOTE | 2018-08-09 06:13 | ED Physician Chart ---
ED Chief Complaint/HPI - Patient Information Date Seen:: 08/09/18 Time Seen:: 03:30 Chief Complaint:: feet pain History of Present Illness:: this is a 57 yo frequent [employer]er [employer] because of bilateral foot pain. he has a long history of alcohol abuse and is homeless. he is unkept, stinks but cooperative. Allergies:: Allergies Allergy/AdvReac Type Severity Reaction Status Date / Time No Known Allergies Allergy Verified 05/10/18 04:34 Vitals:: Vital Signs - 8 hr 08/09/18 03:23 Temp 97.8 F HR 102 RR 17 BP 153/97 O2 Sat % 92 Historian:: EMS, Medical Records Review:: Nurse's Note Reviewed, Old Chart Reviewed ED Review of Systems - Review of Systems General/Constitutional: No fever, No chills, No weight loss, No weakness, No diaphoresis, No edema, No loss of appetite, Other (pt unable to give a review of systems.) Skin: No skin lesions, No rash, No bruising Head: No headache, No light-headedness Eyes: No loss of vision, No pain, No diplopia ENT: No earache, No nasal drainage, No sore throat, No tinnitus Neck: No neck pain, No swelling, No thyromegaly, No stiffness, No mass noted Cardio Vascular: No chest pain, No palpitations, No PND, No orthopnea, No edema Pulmonary: No SOB, No cough, No sputum, No wheezing GI: No nausea, No vomiting, No diarrhea, No pain, No melena, No hematochezia, No constipation, No hematemesis G/U: No dysuria, No frequency, No hematuria Musculoskeletal: No bone or joint pain, No back pain, No muscle pain Endocrine: No polyuria, No polydipsia Psychiatric: No prior psych history, No depression, No anxiety, No suicidal ideation Hematopoietic: No bruising, No lymphadenopathy Allergic/Immuno: No urticaria, No angioedema Neurological: No syncope, No focal symptoms, No weakness, No paresthesia, No headache, No seizure, No dizziness, No confusion, No vertigo ED Past Medical History - Past Medical History Obtainable: Yes Past Medical History: HTN, DM Family History: None Social History: Non Smoker, Alcohol, No Drug Use, Homeless Surgical History: other (unknown) Psychiatricy History: None Medication: Reviewed Family Medical History - Family Member Mother History Unknown: Yes Living Status: ED Physical Exam - Physical Examination General/Constitutional: Awake, Well-developed, well-nourished, Alert, No distress, GCS 15, Non-toxic appearing, Ambulatory Other Gen/Cons comments:: lethargic and unkept Head: Atraumatic Eyes: Lids, conjuctiva normal, PERRL, EOMI Skin: Nl inspection, No rash, No skin lesions, No ecchymosis, Well hydrated, No lymphadenopathy ENMT: External ears, nose nl, Nasal exam nl, Lips, teeth, gums nl Neck: Nontender, Full ROM w/o pain, No JVD, No nuchal rigidity, No bruit, No mass, No stridor Respiratory: Nl effort/Exclusion, Clear to Auscultation, No Wheeze/Rhonchi/Rales Cardio Vascular: RRR, No murmur, gallop, rubs, NL S1 S2 GI: No tenderness/rebounding/guarding, No organomegaly, No hernia, Normal BS's, Nondistended, No mass/bruits, No McBurney tenderness Other GI comments:: large abdomen : No CVA tenderness Extremities: No tenderness or effusion, Full ROM, normal strength in all extremities, No edema, Normal digits & nails Neuro/Psych: Alert/oriented, DTR's symmetric, Normal sensory exam, Normal motor strength, Judgement/insight normal, Mood normal, Normal gait, No focal deficits Misc: Normal back, No paraspinal tenderness ED Assessment - Assessment General Assessment: bilateral foot pain alcoholism ED Septic Shock - . Is Septic Shock (SBP<90, OR Lactate>4 mmol\L) present?: No - <6hrs of presentation: Vital Signs: Vital Signs - 8 hr 08/09/18 03:23 Temp 97.8 F HR 102 RR 17 BP 153/97 O2 Sat % 92 ED Reassessment (Disposition) - Reassessment Reassessment Condition:: Improved - Diagnosis Diagnosis:: bilateral foot pain alcoholism - Aftercare/Follow up Instructions Aftercare/Follow-Up Instructions:: Counseled pt regarding lab results/diagnosis & need follow up, Refer to Discharge Instructions, Counseled pt & family regarding lab results/diagnosis & need follow up - Patient Disposition Discharge/Transfer:: Home Condition at Disposition:: Improved
[2018-08-09 06:31] LABS: % EOSINOPHILS 1.8 % (0.0-5.0); % LYMPHOCYTES 16.9 % (20.0-50.0); % MONOCYTES 2.1 % (2.0-10.0); % NEUTROPHILS 79.2 % (40.0-80.0); EOSINOPHILE ABSOLUTE 0.2 Th/cmm (0.1-0.4); HEMATOCRIT 46.4 % (41.0-60); HEMOGLOBIN 15.7 gm/dL (12-16); LYMPHOCYTE ABSOLUTE 1.6 Th/cmm (1.5-3.0); MEAN CELL VOLUME 88.6 fl (80-99); MEAN CORPUSCULAR HEMOGLOBIN 29.9 pg (26.0-30.0); MEAN CORPUSCULAR HGB CONC 33.7 pg (28.0-36.0); MONOCYTE ABSOLUTE 0.2 Th/cmm (0.3-1.0); NEUTROPHILE ABSOLUTE 7.3 Th/cmm (1.8-8.0); PLATELET COUNT 196 Th/cmm (150-400); RED BLOOD COUNT 5.24 Mil/cmm (4.30-5.70); RED CELL DISTRIBUTION WIDTH 12.7 % (11.5-20.0); WHITE BLOOD COUNT 9.3 Th/cmm (4.8-10.8)
[2018-08-09 07:19] LABS: ALB/GLOB RATIO 1.3 (1.0-1.8); ALBUMIN 3.8 gm/dL (4.2-5.5); ALKALINE PHOSPHATASE 142 U/L (34-104); BILIRUBIN,TOTAL 0.3 mg/dL (0.3-1.0); BUN - UREA NITROGEN 12 mg/dL (7-25); CARBON DIOXIDE 26.6 mEq/L (21.0-31.0); CHLORIDE 99 mEq/L (98-107); CREATININE - SERUM 0.8 mg/dL (0.7-1.3); GFR AFRICAN-AMERICAN > 60.0 ml/min (>90); GFR NON AFRICAN-AMERICAN > 60.0 ml/min; GLUCOSE 364 mg/dL (70-105); POTASSIUM SERUM 3.6 mEq/L (3.5-5.1); SGOT 10 U/L (13-39); SGPT/ALT 12 U/L (7-52); SODIUM SERUM 133 mEq/L (136-145); TOTAL PROTEIN,SERUM 6.8 gm/dL (6.0-8.3)
[2018-08-10 11:09] LABS: A1C 10.7 % (4.8-5.6)
== END 2018-08-09 07:45 | disposition home or self-care (01) ==
LOC: ER 03:14
DX: M79.672 Pain in left foot (principal); M79.671 Pain in right foot; F10.20 Alcohol dependence, uncomplicated; I10 Essential (primary) hypertension; E11.9 Type 2 diabetes mellitus without complications; Y90.0 Blood alcohol level of less than 20 mg/100 ml
CPT/HCPCS: 36415-UA; 80053-TC; 80320-TC; 83036-90; 84443-TC; 84484-TC; 85025-TC; 85730-TC; Z7502